=== PATIENT | female | born 1950 | race American Indian/Alaskan Native ===

== ENCOUNTER 2019-02-17 09:27 | Outpatient (CLI) | payer MEDICARE ==
[2019-02-17 11:06] LABS: Hematocrit 39.6 % (30.3-42.9); Hemoglobin 13.1 gm/dl (10.1-14.3); Mean Corpuscular HGB Conc 33 % (30-34); Mean Corpuscular Volume 99 fl (79-97); Platelet Count 221 K/mm3 (140-440); Red Blood Count 4.02 M/mm3 (3.65-5.03); Red Cell Distribution Width 14.4 % (13.2-15.2)
[2019-02-20 14:21] LABS: Vitamin D, 25-OH, D2 <4 ng/mL
== END 2019-02-17 09:28 | disposition home or self-care (01) ==
LOC: LAB 09:27
PROVIDERS: ATTEND Internal Medicine
DX: D72.819 Decreased white blood cell count, unspecified (principal); R73.03 Prediabetes; R73.09 Other abnormal glucose; Z13.21 Encounter for screening for nutritional disorder
CPT/HCPCS: 36415; 82306; 83036; 85027

== ENCOUNTER 2019-03-11 12:03 | Outpatient (CLI) | payer MEDICARE, OTHER ==
--- NOTE | 2019-03-11 13:47 | Vascular Lab Report ---
DUPLEX DOPPLER LOWER EXTREMITY ARTERIAL, RIGHT INDICATION: I73.9,PERIPHERAL VASCULAR DISEASE, UNSPECIFIED. TECHNIQUE: Arterial duplex examination of both lower extremities performed using B-mode, color flow and spectral Doppler assessment. FINDINGS: RIGHT: Common Femoral Artery: PSV 139 cm/sec. Triphasic waveform. Proximal SFA: PSV 138 cm/sec. Triphasic waveform. Mid SFA: PSV 80 cm/sec. Triphasic waveform. Distal SFA: PSV 64 cm/sec. Triphasic waveform. Popliteal artery: PSV 70 cm/sec. Triphasic waveform. Posterior tibial artery: PSV 84 cm/sec. Triphasic waveform. Dorsalis Pedis Artery: PSV 65 cm/sec. Triphasic waveform. IMPRESSION: No significant lower extremity peripheral artery disease. Doppler Waveform: * Triphasic is normal. * Biphasic is abnormal if clear transition from triphasic signal along vascular tree. * Monophasic is abnormal. Signer Name: Дмитрий Mancia Jr, MD Signed: 03/11/2019 1:42 PM Workstation Name: [id number]
== END 2019-03-11 12:04 | disposition home or self-care (01) ==
LOC: VAS 12:03
PROVIDERS: ATTEND Internal Medicine
DX: I73.9 Peripheral vascular disease, unspecified (principal)